=== PATIENT | female | born 1930 | race Hispanic/Latino ===

== ENCOUNTER 2016-06-20 14:30 | Observation (INO) | payer MEDICARE, MEDICAID ==
[2016-06-20 14:31] VITALS: PULSE 53
[2016-06-20 14:41] VITALS: BMI 31.8
[2016-06-20] MEDS ORDERED: Albuterol-Ipratrop 3 mg / 0.5 (3 ml) UD IH STA (14:59)
[2016-06-20] MEDS ORDERED: MethylPREDNISolone 40 mg Vial IVP STA (15:18)
--- NOTE | 2016-06-20 15:23 | C.PDOC ---
History Of Present Illness 86 year old female with PMH A fib, HTN, DM presents to the ED via ALS from her PMD's office secondary to frequent PVCs. Patient states she has had a fever of 103, productive cough, and congestion for the past 4 days and went to her PMD today for antibiotics. Pt notes " I have bronchitis". (+) SOB. An EKG was done in the office and she was sent to ER for further evaluation. Denies chest pain, SOB, palpitations, confusion, or any other complaints at this time. NOn smoker. Time Seen by Provider: 06/20/16 14:49 Chief Complaint (Nursing): Palpitations History Per: Patient, EMS History/Exam Limitations: no limitations Onset/Duration Of Symptoms: Days Current Symptoms Are (Timing): Still Present Severity: Mild Past Medical History Reviewed: Historical Data, Nursing Documentation, Vital Signs Vital Signs: Last Vital Signs Temp 97.3 F L 06/21/16 15:00 Pulse 105 H 06/21/16 15:00 Resp 20 06/21/16 15:00 BP 129/77 06/21/16 15:00 Pulse Ox 96 06/21/16 15:00 - Medical History PMH: Arthritis, Atrial Fibrillation, Diabetes, Gall Bladder Disease, HTN, Hyperlipidemia Surgical History: Cholecystectomy Family History: States: [place] (father) - Social History Hx Tobacco Use: No Hx Alcohol Use: No Hx Substance Use: No - Immunization History Hx Tetanus Toxoid Vaccination: No Hx Influenza Vaccination: Yes Hx Pneumococcal Vaccination: No Review Of Systems Except As Marked, All Systems Reviewed And Found Negative. Constitutional: Positive for: Fever Cardiovascular: Negative for: Chest Pain, Palpitations Respiratory: Positive for: Cough, Shortness of Breath, Other (+Congestion) Gastrointestinal: Negative for: Vomiting Neurological: Negative for: Weakness, Numbness, Confusion Physical Exam - Physical Exam Appears: Non-toxic, In Acute Distress (in respiratory distress), Other ( persistent cough) Skin: Normal Color, Warm, Dry Head: Atraumatic, Normacephalic Eye(s): bilateral: Normal Inspection, EOMI Nose: Normal Oral Mucosa: Moist Throat: Normal, No Erythema, No Exudate Chest: Symmetrical, No Deformity Cardiovascular: Rhythm Regular Respiratory: No Accessory Muscle Use, No Rales, No Rhonchi, Wheezing, Other Gastrointestinal/Abdominal: Soft Extremity: Pedal Edema Neurological/Psych: Oriented x3, Normal Speech, Normal Cognition ED Course And Treatment - Laboratory Results Result Diagrams: 06/20/16 15:38 06/20/16 15:38 ECG: Interpreted By Me (and DR Elena), Viewed By Me ECG Rhythm: Atrial Fibrillation, PVC Interpretation Of ECG: One PVC noted. None in previous EKG. Rate From EC O2 Sat by Pulse Oximetry: 98 (Nasal cannula) Pulse Ox Interpretation: Normal - Radiology CXR: Viewed By Me, Read By Radiologist CXR Interpretation: Yes: Other (Cardiomegaly. Mild interstitial prominence may reflect pulmonary venous congestion. 10 mm medial right lower lobe nodular density, unclear significance and possibly artifactual. If indicated CT of the chest may be considered for further evaluation.) Progress Note: CXR, EKG, Blood work, Urinalysis, and Flu swab ordered and reviewed. Patient treated with Solu-Medrol and Duo neb. Pt notes mild improvement. Wheezing persists. Additional nebulizers ordered. Case discussed with Dr Judge, who requests Dr Flowers for admission. Case discussed with DR Flowers, agreed upon plan and admission. Disposition - Disposition Disposition: HOSPITALIZED Disposition Time: 15:00 Condition: STABLE - Clinical Impression Clinical Impression: Acute bronchitis, Acute electrocardiography changes, Atrial fibrillation with rapid ventricular response - PA / REFRIGERATION INSTALLER / Resident Statement MD/DO has reviewed & agrees with the documentation as recorded. - Scribe Statement The provider has reviewed the documentation as recorded by the Scribe Daindra Morris. All medical record entries made by the Scribe were at my direction and personally dictated by me. I have reviewed the chart and agree that the record accurately reflects my personal performance of the history, physical exam, medical decision making, and the department course for this patient. I have also personally directed, reviewed, and agree with the discharge instructions and disposition.
[2016-06-20 15:44] LABS: BASO # 0.1 K/uL (0.0-0.2); BASO % 0.7 % (0.0-2.0); EOS # 0.3 K/uL (0.0-0.7); EOS % 3.1 % (0.0-4.0); HEMATOCRIT 36.5 % (34.0-47.0); LYMPH # 1.1 K/uL (1.0-4.3); LYMPH % 13.7 % (20.0-40.0); MEAN CELL VOLUME 94.2 fL (81.0-99.0); MEAN CORPUSCULAR HEMOGLOBIN 30.8 pg (27.0-31.0); MEAN CORPUSCULAR HGB CONC 32.7 g/dL (33.0-37.0); MEAN PLATELET VOLUME 7.9 fL (7.2-11.7); MONO # 0.7 K/uL (0.0-0.8); MONO % 8.4 % (0.0-10.0); RED CELL DISTRIBUTION WIDTH 14.7 % (11.5-14.5); WHITE BLOOD COUNT 8.2 K/uL (4.8-10.8)
[2016-06-20] MEDS ORDERED: MethylPREDNISolone 40 mg Vial ONE ×2 (15:51→19:53)
[2016-06-20] MEDS ORDERED: Albuterol-Ipratrop 3 mg / 0.5 (3 ml) UD ONE ×3 (15:56→20:09)
[2016-06-20 15:57] LABS: CHLORIDE 101 mmol/L (98-107)
[2016-06-20 15:58] LABS: SODIUM 139 mmol/L (132-148)
[2016-06-20 16:00] LABS: ALKALINE PHOSPHATASE 104 U/L (38-126); ALT/SGPT 30 U/L (9-52); AST/SGOT 32 U/L (14-36); BILIRUBIN,TOTAL 0.6 mg/dL (0.2-1.3); BLOOD UREA NITROGEN 18 mg/dL (7-17); CARBON DIOXIDE 26 mmol/L (22-30); GFR AFRICAN-AMERICAN 52; GLUCOSE,RANDOM 97 mg/dL (65-105); TOTAL PROTEIN 7.4 g/dL (6.3-8.3)
[2016-06-20 16:01] LABS: CALCIUM 8.8 mg/dl (8.6-10.4)
--- NOTE | 2016-06-20 16:33 | RAD ---
HISTORY: SOB COMPARISON: Chest x-ray performed 06/03/15 TECHNIQUE: Chest, one view. FINDINGS: LUNGS: No focal consolidation. Please note that chest x-ray has limited sensitivity for the detection of pulmonary masses. PLEURA: No significant pleural effusion identified. No definite pneumothorax . CARDIOVASCULAR: Cardiomegaly OSSEOUS STRUCTURES: No acute osseous abnormality identified. VISUALIZED UPPER ABDOMEN: Unremarkable. OTHER FINDINGS: None. IMPRESSION: Cardiomegaly. Mild interstitial prominence may reflect pulmonary venous congestion. 10 mm medial right lower lobe nodular density, unclear significance and possibly artifactual. If indicated CT of the chest may be considered for further evaluation.
[2016-06-20] MEDS ORDERED: Moxifloxacin IV 400mg/250ml NS 250 ML IV ONE (18:09)
[2016-06-20] MEDS ORDERED: Albuterol-Ipratrop 3 mg / 0.5 (3 ml) UD INH STA (18:10)
[2016-06-20] MEDS ORDERED: methylPREDNISolone 40 MG in Sodium Chloride 0.9% 100 ML IVPB SCH (19:15)
[2016-06-20] MEDS ORDERED: guaiFENesin DM 100 mg-10 mg/5 ml UD PO PRN (19:19)
--- NOTE | 2016-06-20 19:26 | CP.PCM.HP ---
History of Present Illness - History of Present Illness History of Present Illness: 86 years old Female was sent from her PMD's office to the ED because of an atrial fibrillation with rapid ventricular response and with frequent PVC's. The patient has been having a productive cough with fever and wheezing for the past 4 days. Dhe denies any chest pain. She is known to have a chronic atrial fibrillation, a hypertension, a Non-insulin dependent diabetes mellitus, a GERD , a gout, a hypothyroidism, an osteoarthritis of the knees. A Persantine stress MPI in 2014 did not reveal any myocardial ischemia. She is a , does not smoke cigarette, nor abuse alcohol. Her father had heart attack. Present on Admission - Present on Admission Any Indicators Present on Admission: No Review of Systems - Cardiovascular Cardiovascular: Leg Edema, Rapid Heart Rate - Respiratory Respiratory: Cough, Dyspnea, Wheezing, Chest Congestion Past Patient History - Infectious Disease Hx of Infectious Diseases: None - Tetanus Immunizations Tetanus Immunization: Unknown - Past Medical History & Family History Past Medical History?: Yes - Past Social History Smoking Status: Never Smoked Alcohol: None Home Situation {Lives}: With Family - CARDIAC Hx Atrial Fibrillation: Yes Hx Hypertension: Yes - PULMONARY Hx Respiratory Disorders: No - NEUROLOGICAL Hx Neurological Disorder: No - HEENT Hx HEENT Problems: No - RENAL Hx Chronic Kidney Disease: No - ENDOCRINE/METABOLIC Hx Endocrine Disorders: Yes Hx Diabetes Mellitus Type 2: Yes Hx Hypothyroidism: Yes - HEMATOLOGICAL/ONCOLOGICAL Hx Blood Disorders: No - INTEGUMENTARY Hx Dermatological Problems: No - MUSCULOSKELETAL/RHEUMATOLOGICAL Hx Arthritis: Yes - GASTROINTESTINAL Hx Gall Bladder Disease: Yes Hx Gastroesophageal Reflux: Yes - GENITOURINARY/GYNECOLOGICAL Hx Genitourinary Disorders: No - PSYCHIATRIC Hx Substance Use: No - SURGICAL HISTORY Hx Cholecystectomy: Yes - ANESTHESIA Hx Anesthesia: Yes Hx Anesthesia Reactions: No Hx Malignant Hyperthermia: No Meds Allergies/Adverse Reactions: Allergies Allergy/AdvReac Type Severity Reaction Status Date / Time No Known Allergies Allergy Verified 06/20/16 14:41 Physical Exam - Constitutional Appears: No Acute Distress, Chronically Ill - Head Exam Head Exam: NORMAL INSPECTION - Eye Exam Eye Exam: Normal appearance - ENT Exam ENT Exam: Normal Exam - Neck Exam Neck exam: Positive for: Normal Inspection - Respiratory Exam Additional comments: Rhonchi and wheezing bilaterally. - Cardiovascular Exam Cardiovascular Exam: Tachycardia, Irregular Rhythm - GI/Abdominal Exam GI & Abdominal Exam: Normal Bowel Sounds, Soft - Rectal Exam Rectal Exam: Deferred - Extremities Exam Additional comments: Edematous left lower leg. - Back Exam Back exam: NORMAL INSPECTION - Neurological Exam Neurological exam: Alert, Oriented x3 - Psychiatric Exam Psychiatric exam: Anxious - Skin Skin Exam: Dry, Intact, Normal Color, Warm Results - Vital Signs Recent Vital Signs: Last Vital Signs Temp 98.0 F 06/20/16 14:42 Pulse 82 06/20/16 17:39 Resp 18 06/20/16 17:42 BP 120/79 06/20/16 17:39 Pulse Ox 97 06/20/16 17:42 - Labs Result Diagrams: 06/20/16 15:38 06/20/16 15:38 Assessment & Plan (1) Atrial fibrillation with rapid ventricular response Assessment and Plan: To continue Cardizem, Digoxin to control HR. To continue Warfarin. Status: Acute (2) Pneumonia Assessment and Plan: Get sputum for C&S, blood for C&S. Start empirically on Rocephin IV ad Zithromax PO, with Duoneb by nebulizer. Also start IV Solumedrol for wheezing. Status: Acute (3) Non-insulin dependent type 2 diabetes mellitus Assessment and Plan: Cover blood glucose with Novolog according to Accucheck rresults AC and HS. Status: Acute Decision To Admit - Pt Status Changed To: Hospital Disposition Of: Inpatient - Admit Certification Admit to Inpatient:: After my assessment, the patient will require hospitalization for at least two midnights. This is because of the severity of symptoms shown, intensity of services needed, and/or the medical risk in this patient being treated as an outpatient. - InPatient: Physician Admission Certification:: After my assessments, the patient requires hospitalization for at least 2 midnights. - . Bed Request Type: Telemetry Admitting Physician: Kin Flowers
[2016-06-20] MEDS ORDERED: Moxifloxacin IV 400mg/250ml NS 250 ML IVPB ONE (19:40)
[2016-06-20] MEDS: MethylPREDNISolone 40 mg Vial IV SCH (19:57)
[2016-06-20] MEDS: Albuterol-Ipratrop 3 mg / 0.5 (3 ml) UD INH SCH (21:08)
--- NOTE | 2016-06-20 21:20 | CT ---
EXAM: CT Chest Without Intravenous Contrast CLINICAL HISTORY: 86 years old, female; Signs and symptoms; Shortness of breath and other: Nodule; Additional info: Right lower lobe nodule on cxr TECHNIQUE: Axial computed tomography images of the chest without intravenous contrast. This CT exam was performed using one or more of the following dose reduction techniques: automated exposure control, adjustment of the mA and/or kV according to patient size, and/or use of iterative reconstruction technique. Coronal and sagittal reformatted images were created and reviewed. COMPARISON: No relevant prior studies available. FINDINGS: Limitations: Motion artifact - mild. Lungs: Few areas of mucus plugging within bronchi. Mild atelectasis/scarring. No consolidation. Multiple pulmonary nodules, up to 1.4 cm. Early centrilobular emphysematous changes. Pleural space: No pneumothorax. No significant effusion. Heart: Mild cardiomegaly. No significant pericardial effusion. Thyroid: 1.1 x 1.1 x 1.0 cm nodule RIGHT lobe of thyroid. Bones/joints: Mild degenerative changes of spine. No acute fracture. Soft tissues: Unremarkable. Vasculature: Mild atherosclerotic disease. No aortic aneurysm. Lymph nodes: No pathologically enlarged lymph nodes. Adrenals: Mild hypertrophy of adrenal glands. IMPRESSION: 1. Pulmonary nodules. Recommend follow-up CT at around 3, 9 and 24 months, dynamic contrast-enhanced CT, PET, and/or biopsy for patients with low or high risk of malignancy. 2. Incidental/non-acute findings are described above.
[2016-06-20] MEDS: (Novolog) Insulin Aspart, Recombinant 100 u/ml 10 ml vial SC SCH (22:46)
[2016-06-21] MEDS: MethylPREDNISolone 40 mg Vial IV SCH ×2 (00:45→06:42)
[2016-06-21] MEDS: Albuterol-Ipratrop 3 mg / 0.5 (3 ml) UD INH SCH ×3 (01:14→13:15)
[2016-06-21 02:30] VITALS: RESP 20
[2016-06-21 06:46] LABS: INR 1.7
[2016-06-21] MEDS: (Novolog) Insulin Aspart, Recombinant 100 u/ml 10 ml vial SC SCH ×3 (08:00→12:00)
[2016-06-21] MEDS ORDERED: Pantoprazole 40 mg EC Tab PO SCH (10:00)
[2016-06-21] MEDS ORDERED: cefTRIAXone IV 1 gm in Dextros 50 ML IVPB SCH (10:00)
[2016-06-21] MEDS ORDERED: diltiaZEM 120 mg/24 Hours CD Cap PO SCH (10:00)
[2016-06-21] MEDS ORDERED: Digoxin 250 mcg (0.25 mg) Tab PO SCH (10:00)
--- NOTE | 2016-06-21 13:50 | CP.PCM.PN ---
Subjective - Date & Time of Evaluation Date of Evaluation: 06/21/16 Time of Evaluation: 13:44 - Subjective Subjective: Patient has no more shortness of breath, with much less cough. Afebrile. CT scan of the chest with contrast revealed multiple small lung nodules, and mucus plugs in some brochioles, but no consolidation. PT/INR : 1.7. Will restart Warfarin. Will discharge the patient home with Levaquin 500 mg PO qd, Mucinex DM One tablet PO BID and Symbicort 160-4.5 mcg BID. Objective - Vital Signs/Intake and Output Vital Signs (last 24 hours): Temp Pulse Resp BP Pulse Ox 97.5 F L 96 H 20 183/71 H 97 06/21/16 07:15 06/21/16 07:15 06/21/16 07:15 06/21/16 07:15 06/21/16 07:15 Intake and Output: 06/21/16 06/21/16 06:59 18:59 Intake Total 120 Balance 120 - Medications Medications: Current Medications Albuterol/Ipratropium (Duoneb 3 Mg/0.5 Mg (3 Ml) Ud) 3 ml INH RQ6 [facility] Last Admin: 06/21/16 13:15 Dose: 3 ml Allopurinol (Zyloprim) 300 mg PO DAILY [facility] Last Admin: 06/21/16 09:29 Dose: 300 mg Alprazolam (Xanax) 0.5 mg PO BID PRN PRN Reason: Sleep Amlodipine Besylate (Norvasc) 5 mg PO BID [facility] Last Admin: 06/21/16 09:29 Dose: 5 mg Azithromycin (Zithromax) 500 mg PO DAILY [facility] Last Admin: 06/21/16 09:28 Dose: 500 mg Diltiazem HCl (Cardizem Cd) 120 mg PO DAILY [facility] Last Admin: 06/21/16 09:29 Dose: 120 mg Guaifenesin/Dextromethorphan (Robitussin Dm) 5 ml PO Q4H PRN PRN Reason: Cough Last Admin: 06/21/16 00:42 Dose: 5 ml Ceftriaxone Sodium (Rocephin Iv 1 Gm Duplex) 50 mls @ 100 mls/hr IVPB DAILY [facility] Last Admin: 06/21/16 10:30 Dose: 100 mls/hr Insulin Aspart (Novolog) 0 unit SC ACHS [facility] PRN Reason: Protocol Last Admin: 06/21/16 12:00 Dose: Not Given Isosorbide Mononitrate (Imdur) 60 mg PO DAILY [facility] Last Admin: 06/21/16 09:28 Dose: 60 mg Losartan Potassium (Cozaar) 100 mg PO DAILY [facility] Last Admin: 06/21/16 09:29 Dose: 100 mg Methylprednisolone (Solu-Medrol) 40 mg IV Q6H [facility] Last Admin: 06/21/16 06:42 Dose: 40 mg Pantoprazole Sodium (Protonix Ec Tab) 40 mg PO DAILY [facility] Last Admin: 06/21/16 09:28 Dose: 40 mg Pneumococcal Polyvalent Vaccine (Pneumovax 23 Vaccine) 0.5 ml IM .ONCE ONE Stop: 06/23/16 10:01 Rosuvastatin Calcium (Crestor) 20 mg PO [facility] Last Admin: 06/20/16 22:49 Dose: 20 mg Zolpidem Tartrate (Ambien) 5 mg PO [facility] Last Admin: 06/20/16 22:49 Dose: 5 mg - Labs Labs: PT 19.8 SECONDS (9.7-12.2) H 06/21/16 06:05 INR 1.7 06/21/16 06:05 - Constitutional Appears: Well, No Acute Distress - Head Exam Head Exam: NORMAL INSPECTION - Eye Exam Eye Exam: Normal appearance - ENT Exam ENT Exam: Normal Exam - Neck Exam Neck Exam: Normal Inspection - Respiratory Exam Respiratory Exam: Clear to Ausculation Bilateral, NORMAL BREATHING PATTERN - Cardiovascular Exam Cardiovascular Exam: Irregular Rhythm - GI/Abdominal Exam GI & Abdominal Exam: Soft, Normal Bowel Sounds - Rectal Exam Rectal Exam: Deferred - Extremities Exam Extremities Exam: Normal Inspection - Back Exam Back Exam: NORMAL INSPECTION - Neurological Exam Neurological Exam: Alert, Awake, Oriented x3 - Psychiatric Exam Psychiatric exam: Anxious - Skin Skin Exam: Dry, Intact, Normal Color, Warm Assessment and Plan (1) Atrial fibrillation with rapid ventricular response Assessment & Plan: To continue Cardizem, Digoxin, Warfarin. Status: Acute (2) Non-insulin dependent type 2 diabetes mellitus Assessment & Plan: To continue home medications. Status: Chronic
[2016-06-21 15:56] VITALS: BP 129/77; PULSE 105; TEMP 97.3
--- NOTE | 2016-06-22 19:07 | CARD ---
APPROVED REPORT EKG Measurement Heart [id number] <Conclusion> Atrial fibrillation with rapid ventricular response with premature ventricular or aberrantly conducted complexes Nonspecific ST and T wave abnormality Abnormal ECG
[2016-06-23] MEDS ORDERED: Pneumococcal 23-Valent Vaccine IM ONE (10:00)
[2016-06-23 12:53] VITALS: O2SAT 98
== END 2016-06-21 16:14 | disposition home or self-care (01) ==
LOC: C.ER 14:30 → C.9E 16:53 → C.6T 21:05
PROVIDERS: ADMIT Internal Medicine Cardiovascular Disease; ATTEND Internal Medicine Cardiovascular Disease
DX: I48.2 Chronic atrial fibrillation (principal); J18.9 Pneumonia, unspecified organism; I10 Essential (primary) hypertension; E11.9 Type 2 diabetes mellitus without complications; E03.9 Hypothyroidism, unspecified; Z79.84 Long term (current) use of oral hypoglycemic drugs; Z79.01 Long term (current) use of anticoagulants
CPT/HCPCS: 36415; 71010; 71250; 80053; 82550; 82553; 82948; 83880; 84484; 85025; 85610; 87040; 87804; 94150; 94640; 96374; 97116; 97162; 99285; G0378; G8978; G8979; J0696; J2280; J2920